=== PATIENT | male | born 1990 | race Caucasian/White ===

== ENCOUNTER 2020-05-19 19:01 | Emergency (ER) | payer BC, SELFPAY ==
--- NOTE | ~2020-05-19 | XR_ITS ---
EXAMINATION: CT abdomen pelvis wo con, XR abdomen/kub 1V DATE: 05/19/2020 20:23 INDICATION: Left flank pain. TECHNIQUE: 1. Computed tomography (CT) of the abdomen and pelvis was performed without intravenous contrast. Aut omated exposure control and iterative reconstruction technique were employed. The dose-length product was 199.33 mGy-cm. 2. AP view of the abdomen and pelvis was obtained on 2 radiographs. COMPARISON: None FINDINGS: CT: Lower lungs are clear. Heart size is normal. No pericardial or pleural effusion. Calcified epicardial lymph node near the apex of the heart consistent with old granulomatous disease. Liver, gallbladder, spleen, pancreas, bilateral adrenal glands and right kidney are normal. 6 mm stone in a lower pole c shyanne of the left kidney and obstructing 3 mm stone at the left ureterovesicular junction with mild le ft hydroureteronephrosis. There is also mild left perinephric stranding. Bowels including the appendi x are normal. Bladder is normal. No free intraperitoneal gas or fluid. No pathologically enlarged abd ominal or pelvic lymphadenopathy. Mild lumbar spondylosis. KUB: Both the stone at the lower pole of the left kidney in the stomach left ureterovesicular junction are clearly visible on the plain radiographs. IMPRESSION: 1. Left nephrolithiasis with obstructing 3 mm stone at the left ureterovesicular junction with mild l eft hydroureteronephrosis. Reviewed, dictated and finalized at location A. IMPRESSION: 1. Left nephrolithiasis with obstructing 3 mm stone at the left ureterovesicula r junction with mild left hydroureteronephrosis.
[2020-05-19 19:05] VITALS: BP 147/108; PULSE 61; RESP 16; TEMP 36.6; O2SAT 100
[2020-05-19 19:20] LABS: Basophils Absolute Auto 0.1 K/mm3 (0.0-0.1); Basophils Percent Auto 0.8 % (0.2-1.2); Eosinophils Absolute Auto 0.1 K/mm3 (0-0.3); Eosinophils Percent Auto 0.8 % (0-4.4); Hematocrit 43.6 % (42.0-52.0); Hemoglobin 14.3 g/dL (14.0-18.0); Immature Granulocyte Absolute 0.03 K/mm3 (0.00-0.031); Immature Granulocyte Percent A 0.4 % (0-0.5); Lymphocytes Absolute Auto 1.01 K/mm3 (0.9-3.2); Lymphocytes Percent Auto 14.2 % (18.3-44.2); Mean Corpuscular HGB Conc 32.8 g/dl (32-36); Mean Corpuscular Hemoglobin 29.5 pg (26-34); Mean Corpuscular Volume 89.9 fl (80-100); Mean Platelet Volume 9.8 fl (7.4-10.4); Monocytes Absolute Auto 0.5 K/mm3 (0.1-0.6); Monocytes Percent Auto 6.9 % (2.6-8.5); Neutrophils Absolute Auto 5.5 K/mm3 (1.3-6.7); Neutrophils Percent Auto 76.9 % (45.5-73.1); Platelet Count Result 269 k/mm3 (150-375); Red Blood Count 4.85 M/mm3 (4.6-6.20); Red Cell Distribution Width 12.9 % (11.5-14.5); White Blood Count 7.1 K/mm3 (4.5-10.0)
[2020-05-19 19:24] LABS: Add Urine Microscopic? YES; Appearance Urine Clear (Clear); Bacteria Urine Trace /hpf; Bilirubin Urine Negative (Negative); Blood Urine 3+ (Negative); Color Urine Yellow (Yellow); Glucose Urine UA Negative (Negative); Ketones Urine 1+ mg/dL (Negative); Leukocyte Esterase Ur Negative LEU/UL (Negative); Mucus Urine Moderate /lpf; Nitrate Urine Negative (Negative); Protein Urine 1+ mg/dL (Negative); RBC Urine >75 /hpf (0-2); Squamous Epithelial Cell Urine Rare /hpf (Few); Urobilinogen Urine Negative mg/dL (<2.0)
[2020-05-19 19:25] LABS: Specific Grav Ur 1.032 (1.001-1.035)
[2020-05-19 19:31] LABS: Alanine Aminotransferase 36 U/L (4-50); Albumin Level 4.5 g/dL (3.5-5.1); Alkaline Phosphatase 41 U/L (38-126); Anion Gap 12 mmol/L (8-16); Aspartate Amino Transferase 37 U/L (17-59); Bilirubin,Total 0.8 mg/dL (0.2-1.3); Blood Urea Nitrogen 17 mg/dL (9-20); Calcium 9.6 mg/dL (8.4-10.2); Carbon Dioxide 28 mmol/L (22-30); Chloride 100 mmol/L (98-107); Estimated CRCL calculation 87 ml/min; Estimated Glomerular Filt Rate > 60; Glucose 142 mg/dL (75-110); Lipase 101 U/L (23-300); Potassium 4.1 mmol/L (3.4-5.0); Sodium 140 mmol/L (137-145)
[2020-05-19] MEDS: MORPHINE SULFATE (*CRX) 4 MG/ML INJ IV PUSH (20:13)
[2020-05-19] MEDS: ONDANSETRON INJ 4 MG/2 ML VIAL IV PUSH (20:13)
--- NOTE | 2020-05-19 20:19 | ED.BACK ---
HPI - Back Pain/Injury General Chief Complaint: Back Pain/Injury Stated Complaint: lt flank pain Time Seen by Provider: 05/19/20 19:23 Source: patient Mode of arrival: ambulatory History of Present Illness HPI Narrative: This patient is a 30 year old male who presents for evaluation of sudden onset left flank pain. He states around 1 pm today he has some mild burning with urination. He developed sudden onset with left lower back pain at 430 pm today. THis pain has been constant, and he states he now feels pain radiating to left groin. He denies hematuria, fever or chills. He states a few years ago he had similar pain but he did not receive evaluation. He does have associated nausea and vomiting. MD elicited complaint: back pain Related Data Allergies Allergy/AdvReac Type Severity Reaction Status Date / Time No Known Allergies Allergy Unverified 01/28/17 11:48 Review of Systems Review of Systems: All systems reviewed & are unremarkable except as noted in HPI and below Constitutional: Constitutional: Denies chills and Denies fever(s) Gastrointestinal: Gastrointestinal: Reports abdominal pain, Reports nausea and Reports vomiting PMFSH Past Medical History Medical History (Updated 05/19/20 @ 21:50 by Kenyetta Salazar MD) Patient denies medical problems Surgical History Surgical History (Updated 05/19/20 @ 20:22 by Kenyetta Salazar MD) No significant past surgical history Social History Social History (Updated 05/19/20 @ 20:22 by Kenyetta Salazar MD) Smoking status: Former smoker Exam Const: General: alert Orientation/consciousness: patient oriented x3 Eyes: EOM: EOMs intact bilaterally Resp: Effort & Inspection: normal respiratory effort and no retractions Auscultation: clear to auscultation bilaterally Cardio: Rate: regular rate Rhythm: regular rhythm Heart sounds: no murmurs GI: GI Palp: Yes Soft to palpation and No Tenderness to palpation present (GI) Auscultation: normal bowel sounds : General: Yes no CVA tenderness Back/Spine/Pelvis: Back: no CVA tenderness Skin: General skin exam: normal color Rashes: no rashes Neuro: General: patient oriented x3, moves all extremities and CN's II-XI intact bilaterally Course Reevaluation(s) Reevaluation #1: I discussed with patient CT showing kidney stones. HE states his pain is starting to return. I Discussed discharge plan and pain management. Date: 05/19/20 Time: 21:41 Vital Signs Vital signs: Vital Signs Temperature 97.9 F 05/19/20 19:05 Pulse Rate 61 05/19/20 19:05 Respiratory Rate 16 05/19/20 19:05 Blood Pressure 147/108 H 05/19/20 19:05 Pulse Oximetry 100 05/19/20 19:05 Temperature 97.9 F 05/19/20 19:05 Pulse Rate 56 L 05/19/20 21:00 Respiratory Rate 20 05/19/20 21:00 Blood Pressure 134/90 05/19/20 21:00 Pulse Oximetry 98 05/19/20 21:00 MDM - Back Pain/Injury Lab Data Attestation: I reviewed the patient's lab results. Result diagrams: 05/19/20 19:11 05/19/20 19:11 Labs: Lab Results 05/19/20 05/19/20 05/19/20 Range/Units 19:11 19:11 19:11 WBC 7.1 (4.5-10.0) K/mm3 RBC 4.85 (4.6-6.20) M/mm3 Hgb 14.3 (14.0-18.0) g/dL Hct 43.6 (42.0-52.0) % MCV 89.9 (80-100) fl MCH 29.5 (26-34) pg MCHC 32.8 (32-36) g/dl RDW 12.9 (11.5-14.5) % Plt Count 269 (150-375) k/mm3 MPV 9.8 (7.4-10.4) fl Immature Gran % (Auto) 0.4 (0-0.5) % Neut % (Auto) 76.9 H (45.5-73.1) % Lymph % (Auto) 14.2 L (18.3-44.2) % [place] % (Auto) 6.9 (2.6-8.5) % Eos % (Auto) 0.8 (0-4.4) % Baso % (Auto) 0.8 (0.2-1.2) % Lymph # (Auto) 1.01 (0.9-3.2) K/mm3 [place] # (Auto) 0.5 (0.1-0.6) K/mm3 Eos # (Auto) 0.1 (0-0.3) K/mm3 Baso # (Auto) 0.1 (0.0-0.1) K/mm3 Abs Immat Gran (auto) 0.03 (0.00-0.031) K/mm3 Absolute Neuts (auto) 5.5 (1.3-6.7) K/mm3 Absolute Nucleated RBC 0.0 (0.0-0.012) K/
[2020-05-19 21:00] VITALS: BP 134/90; PULSE 56; RESP 20; O2SAT 98
[2020-05-19] MEDS: TAMSULOSIN HCL 0.4 MG CAPSULE PO (21:50)
[2020-05-19] MEDS: KETOROLAC 30 MG/ML VIAL (*BKC) IV PUSH (21:50)
== END 2020-05-19 22:04 | disposition home or self-care (01) ==
PROVIDERS: Emergency Medicine; Emergency Provider General Practice
DX: N13.2 Hydronephrosis with renal and ureteral calculous obstruction (principal); Z87.891 Personal history of nicotine dependence
CPT/HCPCS: 36415; 74018; 74176; 80053; 81001; 83690; 85025; 87086; 96365; 96375; 99284; A9270; J0131; J1885; J2270; J2405